=== PATIENT | female | born 1955 | race Hispanic/Latino ===

== ENCOUNTER 2019-06-13 20:09 | Emergency (ER) | payer OTHER ==
--- NOTE | 2019-06-13 21:36 | ER ---
Nurse's Notes [facility] Name: Agustina Abad Age: 63 yrs Sex: Female : 1955 Arrival Date: 06/13/2019 Time: 20:10 Bed Waiting Private MD: Diagnosis: ED Course: 06/13 20:10 Patient arrived in ED. ds1 20:50 Patient's name was called from ER lobby. No response. aj1 21:05 Patient's name was called from ER lobby. No response. aj1 21:36 Patient's name was called from ER lobby. No response. Unable to locate patient. Will aj1 disposition as left without being seen by a provider. Administered Medications: No medications were administered Outcome: 21:36 Patient left the ED. aj1 Signatures: Mell Neal RN RN aj1 Alida Rosas ds1
== END 2019-06-13 21:36 | disposition left against medical advice (07) ==
LOC: ER 20:09
DX: Z02.9 Encounter for administrative examinations, unspecified (principal); Z53.21 Procedure and treatment not carried out due to patient leaving prior to being seen by health care provider